=== PATIENT | female | born 1995 | race Caucasian/White ===

== ENCOUNTER 2016-12-10 07:28 | Emergency (ER) | payer OTHER ==
[2016-12-10 07:54] VITALS: BP 138/82
--- NOTE | 2016-12-10 08:09 | UC ---
Cardiac HPI - HPI Summary HPI Summary: 21 yo female with vague upper chest pain x 1 week pressure/palpitations some SOB Can't sleep at night because she focuses on her heart beat/feels anxious and cries no n/v/d no wt changes - History of Current Complaint Chief Complaint: UCChestPain Stated Complaint: CHEST PAIN Time Seen by Provider: 12/10/16 07:43 Hx Obtained From: Patient Onset/Duration: Gradual Onset, Lasting Weeks - 1 Timing: Constant Initial Severity: Mild Current Severity: Mild Pain Intensity: 2 Chest Pain Location: Diffuse, Upper Sternal Character: Skipped Beats, Pressure/Squeezing Aggravating: Nothing - laying down to go to sleep Alleviating: Nothing - deep breath sometimes help Associated Signs & Symptoms: Positive: Chest Pain, Anxiety, SOB - Allergy/Home Medications Allergies/Adverse Reactions: Allergies Allergy/AdvReac Type Severity Reaction Status Date / Time Amoxicillin AdvReac doesn't Verified 12/10/16 07:33 work for her PMH/Surg Hx/FS Hx/Imm Hx Previously Healthy: Yes Respiratory History Of: Reports: Asthma, Bronchitis, Pneumonia - Surgical History Surgical History: None - Family History Known Family History: Positive: Unknown - adopted - Social History Alcohol Use: None Substance Use Type: None Smoking Status (MU): Never Smoked Tobacco - Immunization History Most Recent Influenza Vaccination: none Review of Systems Constitutional: Negative Skin: Negative Eyes: Negative ENT: Negative Respiratory: Shortness Of Breath Cardiovascular: Chest Pain Gastrointestinal: Negative Genitourinary: Negative Motor: Negative Neurovascular: Negative Musculoskeletal: Negative Neurological: Negative Psychological: Anxious All Other Systems Reviewed And Are Negative: Yes Physical Exam Triage Information Reviewed: Yes Appearance: Well-Appearing, No Pain Distress, Well-Nourished Vital Signs: Initial Vital Signs Temp 98 F 12/10/16 07:34 Pulse 96 12/10/16 07:34 Resp 18 12/10/16 07:34 BP 138/82 12/10/16 07:34 Pulse Ox 99 12/10/16 07:34 Vital Signs Reviewed: Yes Eyes: Positive: Conjunctiva Clear ENT: Positive: Hearing grossly normal. Negative: Nasal congestion, Nasal drainage, Tonsillar exudate, Trismus, Muffled/hoarse voice Neck: Positive: Supple, Nontender, No Lymphadenopathy Respiratory: Positive: Lungs clear, Normal breath sounds, No respiratory distress, No accessory muscle use Cardiovascular: Positive: RRR, No Murmur. Negative: Tachycardia, Bradycardia Abdomen Description: Positive: Nontender, No Organomegaly, Soft. Negative: CVA Tenderness (R), CVA Tenderness (L), Pulsatile Mass Musculoskeletal: Positive: ROM Intact, No Edema Neurological: Positive: Alert Psychological Exam: Normal Skin Exam: Normal Diagnostics - EKG Cardiac Rate: NL Cardiac Rhythm: Sinus: Normal Ectopy: None ST Segment: Normal - Clinical Impression Provider Diagnoses: chest discomfort. palpitations. anxiety Discharge - Discharge Plan Condition: Stable Disposition: HOME Prescriptions: traZODone TAB* [Desyrel TAB*] 50 - 100 mg PO BEDTIME PRN #30 tab PRN Reason: Anxiety Patient Education Materials: Chest Pain (ED), Palpitations (ED), Anxiety (ED) Referrals: Non Staff,Doctor [Primary Care Provider] - As Soon As Possible (see your MD in follow up) Additional Instructions: recheck for new or worsening symptoms
[2016-12-10] MEDS ORDERED: Ibuprofen TAB* 600 MG PO ONE (08:12)
--- NOTE | 2016-12-10 08:26 | RAD ---
INDICATION: Chest pain. Palpitations COMPARISON: None TECHNIQUE: PA and lateral dual-energy views were obtained. FINDINGS: Bones/Soft Tissues: There are no acute bony findings. Cardiomediastinal: The cardiomediastinal silhouette is normal. Lungs: There are no infiltrates. Pleura: There are no pleural effusions. Other: None IMPRESSION: NORMAL CHEST.
== END 2016-12-10 08:50 | disposition home or self-care (01) ==
LOC: UCCORT 07:28
DX: R07.89 Other chest pain (principal); R00.2 Palpitations; F41.9 Anxiety disorder, unspecified; J45.909 Unspecified asthma, uncomplicated; Z88.1 Allergy status to other antibiotic agents
CPT/HCPCS: 71020; 93005; 99212; G0463